=== PATIENT | male | born 1925 | race Caucasian/White ===

== ENCOUNTER 2016-09-23 14:54 | Outpatient (RCR) | payer MEDICARE | END 2016-12-22 | disposition home or self-care (01) | LOC: LAB 14:54 | PROVIDERS: ATTEND Family Medicine | DX: Z51.81 Encounter for therapeutic drug level monitoring (principal); Z79.01 Long term (current) use of anticoagulants | CPT/HCPCS: 36415; 85610 ==

== ENCOUNTER 2016-12-25 15:31 | Outpatient (RCR) | payer MEDICARE ==
[~2016-12-25 15:31] MED LIST: ALLO300T2 PO; BENZ-22 PO; SOTA80TA PO; TAMS-8 PO; WARF5TAB PO
== END 2017-03-25 | disposition home or self-care (01) ==
LOC: LAB 15:31
PROVIDERS: ATTEND Family Medicine
DX: Z51.81 Encounter for therapeutic drug level monitoring (principal); Z79.01 Long term (current) use of anticoagulants
CPT/HCPCS: 36415; 85610